=== PATIENT | female | born 2000 | race Caucasian/White ===

== ENCOUNTER 2024-05-14 10:20 | Outpatient (CLI) | payer OTHER, SELFPAY ==
--- NOTE | 2024-05-14 14:30 | WPDPFTINT ---
PFT Procedure Performed PFT Procedure Performed Spirometry with Pre/Post Bronchodilator Plethysmography (Lung Vol) Diffusing Cap (DLCO) Flow Vol Loop PFT Interpretation This is a pulmonary function test with pre and post-bronchodilator spirometry, plethysmography and diffusing capacity. The test was performed and results interpreted in accordance with the 2019 and 2005 ATS/ERS Task Force guidelines respectively using the Global Lung Function Initiative-2012 reference equations. Patient demonstrated good effort and cooperation. Reproducibility criteria were met. The quality of the pre bronchodilator spirometry maneuver was Grade A and post bronchodilator spirometry maneuver was Grade A. Findings: Spirometry: The contour the expiratory flow tracing demonstrates a mid expiratory plateau or knee pattern in all 3 pre bronchodilator maneuvers and 1 of 3 post bronchodilator maneuvers. The contour the inspiratory flow tracing is normal. The pre bronchodilator FVC is 3.75 L, 102% predicted. The pre bronchodilator FEV1 is 3.10 L, 97% predicted. The pre bronchodilator FEV1: FVC ratio is 83%. The post bronchodilator FVC is 3.69 L, representing a 2% decrease. The post bronchodilator FEV1 is 3.19 L, representing a 3% increase. The post bronchodilator FEV1: FVC ratio is 87%. Plethysmography: The total lung capacity is 4.33 L, 88% predicted. The functional residual capacity is 1.88 L, 71% predicted. The residual volume is 0.58 L, 49% predicted. Diffusing capacity: Diffusing capacity unadjusted for hemoglobin and carboxyhemoglobin is 23.6, 93% predicted. The diffusing capacity adjusted for alveolar volume is 5.23, 103% predicted. 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 The normal variant is more common in younger female patients, decreases with age and is more pronounced in the post bronchodilator efforts. The pattern has also been described with kyphosis, kyphoscoliosis, central obstructing mass, and post lung transplantation. Otherwise, the spirometry is normal without evidence of an obstructive abnormality. There is no significant improvement after inhaling a single dose of albuterol. The lung volumes are normal. The diffusing capacity is normal. There are no prior studies for comparison
== END 2024-05-14 10:21 | disposition home or self-care (01) ==
LOC: ANHPFT 10:21
DX: J45.909 Unspecified asthma, uncomplicated (principal); R94.2 Abnormal results of pulmonary function studies
CPT/HCPCS: 94060; 94726; 94729

== ENCOUNTER 2024-06-22 10:12 | Outpatient (CLI) | payer OTHER, SELFPAY ==
[2024-06-22 14:15] LABS: Chlamydia trachomatis NOT DETECTED (NOT DETECTE); Neisseria gonorrhoeae PCR NOT DETECTED (NOT DETECTE)
[2024-06-26 22:58] LABS: Immunoglobulin G, Serum 822 mg/dL (600-1640); Immunoglobulin G1 421 mg/dL (382-929); Immunoglobulin G2 312 mg/dL (241-700); Immunoglobulin G3 32 mg/dL (22-178); Immunoglobulin G4 30.1 mg/dL (4.0-86.0)
== END 2024-06-22 10:13 | disposition home or self-care (01) ==
LOC: ANHLAB 10:15
PROVIDERS: Referring Provider Nurse Practitioner Family; Visit Provider Nurse Practitioner
DX: J45.909 Unspecified asthma, uncomplicated (principal); Z13.9 Encounter for screening, unspecified
CPT/HCPCS: 36415; 82784; 82785; 82787; 85048; 86003; 87491; 87591